=== PATIENT | female | born 1995 | race Caucasian/White ===

== ENCOUNTER 2018-05-28 17:10 | Emergency (ER) | payer OTHER, MEDICAID, SELFPAY ==
[2018-05-28 21:26] VITALS: BP 125/81; PULSE 88; RESP 20; TEMP 36.8; O2SAT 98
== END 2018-05-28 23:10 | disposition left against medical advice (07) ==
DX: M79.604 Pain in right leg (principal)
CPT/HCPCS: 99281; 99282

== ENCOUNTER → 2019-01-21 15:54 | Outpatient (CLI) | payer OTHER, MEDICAID, SELFPAY ==
[2019-01-21 17:28] LABS: Alanine Aminotransferase 72 IU/L (9-52); Albumin 4.2 g/dL (3.5-5.0); Albumin Globulin Ratio 1.2 (1.0-2.8); Alkaline Phosphatase 69 U/L (38-126); Aspartate Aminotransferase 40 IU/L (14-36); Bilirubin Total 0.5 mg/dL (0.2-1.3); Blood Urea Nitrogen 15 mg/dL (7-17); Calcium 9.2 mg/dL (8.4-10.2); Carbon Dioxide 25 mmol/L (22-32); Chloride 96 mmol/L (98-107); Cholesterol 143 mg/dL (140-199); Estimated Glomerular Filt Rate > 60.0 mL/min (>60); Globulin 3.6 g/dL (1.7-4.1); Glucose 277 mg/dL (70-100); HDL Cholesterol 37 mg/dL (40-60); HEMOLYSIS < 15 (0-50); LDL Cholesterol Calculated 57 mg/dL (<100); Potassium 4.9 mmol/L (3.4-5.1); Sodium 136 mmol/L (137-145); Total Protein 7.8 g/dL (6.3-8.2); Triglycerides 245 mg/dL (35-150)
[2019-01-21 17:35] LABS: Hemoglobin A1C% w Est Avg Glu 10.2 % (4.0-6.0)
[2019-01-21 17:43] LABS: Free T4, Direct Thyroxine 1.35 ng/dL (0.78-2.19)
[2019-01-21 17:57] LABS: Thyroid Stimulating Hormone 0.69 uIU/mL (0.47-4.68)
== END ==
PROVIDERS: Visit Provider Nurse Practitioner Family
DX: I50.32 Chronic diastolic (congestive) heart failure (principal); E66.01 Morbid (severe) obesity due to excess calories; E11.9 Type 2 diabetes mellitus without complications
CPT/HCPCS: 36415; 80053; 80061; 83036; 84439; 84443